=== PATIENT | female | born 1950 | race Two or more races ===

== ENCOUNTER 2024-04-29 12:58 | Emergency (ER) | payer OTHER ==
[~2024-04-29] VITALS: Ht 152.4 cm; Wt 59.0 kg
[2024-04-29] MEDS ORDERED: ATORVASTATIN CA40 MG PO (13:59)
[2024-04-29 14:00] VITALS: BP 127/80; O2SAT 100
[2024-04-29] MEDS ORDERED: HYOSCYAMINE SULFATE 0.125 MG TAB.SUBL SL STA (15:49)
[2024-04-29] MEDS ORDERED: HYOSCYAMINE SULFATE 0.125 MG TAB.SUBL ONE (16:16)
== END 2024-04-29 17:40 | disposition home or self-care (01) ==
LOC: ER 13:01 → EMR PED 13:30 → ER 13:30
DX: B34.9 Viral infection, unspecified (principal); R53.81 Other malaise; Z20.822 Contact with and (suspected) exposure to COVID-19